=== PATIENT | female | born 1995 | race Two or more races ===

== ENCOUNTER 2018-11-12 11:08 | Observation (INO) | payer SELFPAY ==
[~2018-11-12] VITALS: Ht 152.4 cm; Wt 44.5 kg
[2018-11-12] MEDS ORDERED: LACTATED RINGER'S 1,000 ML IV ONE (11:44)
[2018-11-12] MEDS ORDERED: TERBUTALINE SULFATE 1 MG/ML 1ML VIAL SC SCH (11:45)
[2018-11-12 13:15] LABS: Urine Bacteria NONE SEEN /hpf (None Seen); Urine Blood Negative /uL (Negative); Urine Hyaline Cast FEW /lpf (0 - 2); Urine Specific Gravity 1.009 (1.001-1.035); Urine WBC 41 /hpf (0 - 5)
[2018-11-12 13:59] LABS: Alcohol, Urine < 3.0 mg/dL (0-5); Amphetamine Screen, Urine NEGATIVE (NEGATIVE); Barbiturate Scree,Urine NEGATIVE (NEGATIVE); Benzodiazephine Screen, Urine NEGATIVE (NEGATIVE); Cocaine Screen, Urine NEGATIVE (NEGATIVE); Opiate Scree,Urine NEGATIVE (NEGATIVE); Phencyclidine Screen, Urine NEGATIVE (NEGATIVE)
[2018-11-12 14:00] LABS: Cannabinoid Screen, Urine POSITIVE (NEGATIVE)
== END 2018-11-12 13:47 | disposition home or self-care (01) | DRG 833 ==
LOC: LDRP 11:08
PROVIDERS: ADMIT Specialist; ATTEND Specialist
DX: O62.9 Abnormality of forces of labor, unspecified (principal); Z3A.28 28 weeks gestation of pregnancy
CPT/HCPCS: 59025; 76805; 80307; 81001; 81002; G0378; 96365; 96366; 96372

== ENCOUNTER 2018-11-26 19:04 | Observation (INO) | payer SELFPAY ==
[~2018-11-26] VITALS: Ht 152.4 cm; Wt 44.5 kg
[2018-11-26] MEDS ORDERED: LACTATED RINGER'S 1,000 ML IV ONE (19:30)
[2018-11-26] MEDS ORDERED: LACTATED RINGER'S 1,000 ML IV SCH (19:30)
[2018-11-26] MEDS: TERBUTALINE SULFATE 1 MG/ML 1ML VIAL SC SCH ×2 (19:42→20:39)
[2018-11-26 21:20] LABS: Urine Bacteria NONE SEEN /hpf (None Seen); Urine Blood Negative /uL (Negative); Urine Specific Gravity 1.015 (1.001-1.035); Urine WBC <1 /hpf (0 - 5)
[2018-11-26] MEDS ORDERED: ONDANSETRON HCL 4 MG/2 ML VIAL IV PRN (21:30)
[2018-11-26 21:46] LABS: Alcohol, Urine < 3.0 mg/dL (0-5); Amphetamine Screen, Urine NEGATIVE (NEGATIVE); Barbiturate Scree,Urine NEGATIVE (NEGATIVE); Benzodiazephine Screen, Urine NEGATIVE (NEGATIVE); Cannabinoid Screen, Urine POSITIVE (NEGATIVE); Cocaine Screen, Urine NEGATIVE (NEGATIVE); Opiate Scree,Urine NEGATIVE (NEGATIVE); Phencyclidine Screen, Urine NEGATIVE (NEGATIVE)
[2018-11-26 22:03] LABS: Basophils # (auto) 0 uL; Basophils % (auto) 0.1 % (0.0-2.0); Eosinophils # (auto) 0 uL; Eosinophils % (auto) 0.1 % (0.0-7.0); Hematocrit 29.5 % (36.0-46.0); Hemoglobin 9.6 g/dL (12.2-16.2); Lymphocytes # (auto) 1.9 uL; Lymphocytes % (auto) 14.2 % (10.0-50.0); Mean Corpuscular Hemoglobin 27.7 pg (28.0-32.0); Mean Corpuscular Hgb Conc. 32.8 g/dL (32.0-36.0); Mean Corpuscular Volume 84.5 fL (80.0-100.0); Monocytes # (auto) 0.8 uL; Monocytes % (auto) 5.7 % (0.0-12.0); Neutrophils # (auto) 10.5 uL; Neutrophils % (auto) 79.9 % (37.0-80.0); Nucleated Red Blood Cells % 0.1 %; Platelet Count (auto) 251 10^3/uL (140-450); Red Blood Cells 3.49 10^6/uL (4.0-5.20); Red Cell Distribution Width 14.4 % (11.8-14.3); White Blood Cell 13.2 10^3/uL (4.4-10.8)
[2018-11-26 22:13] LABS: Albumin 2.6 g/dL (3.4-5.0); BUN/Creatinine Ratio 9.3; Calcium 8.5 mg/dL (8.5-10.1)
[2018-11-26 22:16] LABS: Bilirubin, Total 0.3 mg/dL (0.2-1.0); Total Protein 6.3 g/dL (6.4-8.2)
[2018-11-26 22:35] LABS: Potassium 2.6 mmol/L (3.5-5.1)
[2018-11-26] MEDS ORDERED: POTASSIUM CHL 20 Meq TABLET PO ONE (22:45)
[2018-11-26] MEDS: POTASSIUM CHL 20MEQ/100ML 100 ML IV SCH (23:19)
[2018-11-27] MEDS: TERBUTALINE SULFATE 1 MG/ML 1ML VIAL SC SCH (00:15)
[2018-11-27] MEDS: POTASSIUM CHL 20MEQ/100ML 100 ML IV SCH (01:24)
== END 2018-11-27 03:30 | disposition home or self-care (01) | DRG 833 ==
LOC: LDRP 19:04
PROVIDERS: ADMIT Specialist; ATTEND Specialist
DX: O00.01 Abdominal pregnancy with intrauterine pregnancy (principal); O21.2 Late vomiting of pregnancy; O62.9 Abnormality of forces of labor, unspecified; Z3A.30 30 weeks gestation of pregnancy
CPT/HCPCS: 36415; 59025; 76815; 80053; 80307; 81001; 85025; 96361; 96372; 96374; G0378; J2405; J3105; J3480; J7030; 96365; 96366

== ENCOUNTER 2018-12-02 16:30 | Observation (INO) | payer SELFPAY ==
[~2018-12-02] VITALS: Ht 152.4 cm; Wt 44.5 kg
[2018-12-02] MEDS ORDERED: LACTATED RINGER'S 1,000 ML IV SCH (17:07)
[2018-12-02] MEDS: TERBUTALINE SULFATE 1 MG/ML 1ML VIAL SC SCH ×2 (17:19→18:59)
[2018-12-02 18:28] LABS: Urine Bacteria NONE SEEN /hpf (None Seen); Urine Blood Negative /uL (Negative); Urine Specific Gravity 1.004 (1.001-1.035); Urine WBC 1 /hpf (0 - 5)
[2018-12-02 19:00] LABS: Alcohol, Urine < 3.0 mg/dL (0-5); Amphetamine Screen, Urine NEGATIVE (NEGATIVE); Barbiturate Scree,Urine NEGATIVE (NEGATIVE); Benzodiazephine Screen, Urine NEGATIVE (NEGATIVE); Cannabinoid Screen, Urine POSITIVE (NEGATIVE); Cocaine Screen, Urine NEGATIVE (NEGATIVE); Opiate Scree,Urine NEGATIVE (NEGATIVE); Phencyclidine Screen, Urine NEGATIVE (NEGATIVE)
== END 2018-12-02 19:15 | disposition home or self-care (01) | DRG 832 ==
LOC: LDRP 16:30
PROVIDERS: ADMIT Specialist; ATTEND Specialist
DX: O62.9 Abnormality of forces of labor, unspecified (principal); O99.323 Drug use complicating pregnancy, third trimester; O26.893 Other specified pregnancy related conditions, third trimester; N89.8 Other specified noninflammatory disorders of vagina; F12.90 Cannabis use, unspecified, uncomplicated; Z3A.31 31 weeks gestation of pregnancy
CPT/HCPCS: 59025; 80307; 81001; 81002; 96372; G0378; J3105; 96365; 96366